=== PATIENT | female | born 1975 | race Caucasian/White ===

== ENCOUNTER 2016-11-18 16:02 | Emergency (ER) | payer OTHER ==
[~2016-11-18 16:02] MED LIST: ASPIRIN EC81 MG PO; COLACE100 MG PO; HYDROCODON-ACE1 EAC2 PO; NEURONTIN600 MG PO; NITROQUICK0.4 MG SL
== END 2016-11-18 18:03 | disposition home or self-care (01) ==
LOC: ER 16:02
DX: S51.802A Unspecified open wound of left forearm, initial encounter (principal); M79.602 Pain in left arm; Z89.212 Acquired absence of left upper limb below elbow; I10 Essential (primary) hypertension; Z79.899 Other long term (current) drug therapy
CPT/HCPCS: 99282

== ENCOUNTER 2016-11-27 15:19 | Emergency (ER) | payer OTHER | END 2016-11-27 21:23 | disposition home or self-care (01) | LOC: ER 15:19 | DX: M79.602 Pain in left arm (principal); M25.561 Pain in right knee; W19.XXXA Unspecified fall, initial encounter; Z89.212 Acquired absence of left upper limb below elbow; Z88.5 Allergy status to narcotic agent; Z79.899 Other long term (current) drug therapy | CPT/HCPCS: 99282 ==

== ENCOUNTER 2016-12-18 15:48 | Emergency (ER) | payer OTHER | END 2016-12-18 19:05 | disposition home or self-care (01) | LOC: ER 15:48 | DX: J06.9 Acute upper respiratory infection, unspecified (principal); M79.632 Pain in left forearm; I10 Essential (primary) hypertension; Z89.212 Acquired absence of left upper limb below elbow; Z88.5 Allergy status to narcotic agent | CPT/HCPCS: 99282 ==

== ENCOUNTER 2017-01-05 14:55 | Emergency (ER) | payer OTHER | END 2017-01-05 16:31 | disposition home or self-care (01) | LOC: ER 14:55 | DX: S40.022A Contusion of left upper arm, initial encounter (principal); S30.0XXA Contusion of lower back and pelvis, initial encounter; Y04.0XXA Assault by unarmed brawl or fight, initial encounter; Y92.9 Unspecified place or not applicable; I10 Essential (primary) hypertension; Z98.51 Tubal ligation status; Z89.212 Acquired absence of left upper limb below elbow; Z79.899 Other long term (current) drug therapy; Z88.5 Allergy status to narcotic agent | CPT/HCPCS: 99282 ==